=== PATIENT | male | born 1965 | race Caucasian/White ===

== ENCOUNTER 2019-05-23 18:38 | Emergency (ER) | payer BC, SELFPAY ==
[2019-05-23 18:41] VITALS: BP 183/118; PULSE 105; RESP 17; TEMP 36.5; O2SAT 98; BMI 26.8
--- NOTE | 2019-05-23 18:51 | ED_ITS ---
Entered by Adri Alonzo, acting as scribe for Diaz Zavala HPI - General Adult General: Chief complaint: General Medical Stated complaint: hand numbness Time Seen by Provider: 05/23/19 18:50 Source: patient Mode of arrival: ambulatory Limitations: no limitations History of Present Illness: HPI narrative: 53 yo Male presents to ED with complaint of hand numbness/tingling. Pt states that he went to the clinic to try to get his blood pressure prescription refilled but they wouldn't write it for him and told him to come in to the ED to be seen. Pt states that he had a 3 month prescription but his regular doctor's office closed and he hasn't gotten his prescription re-written. Pt states he has been out of his medication for 3 months. MD complaint: Needs blood pressure prescription Onset (ago): month(s) Location: left and upper extremity Radiation: non-radiation Severity scale (1-10): 8 Quality: constant Pain Consistency: constant Relieving factors: none Exacerbating factors: none Associated symptoms: Reports other (tingling in left hand); Deny chest pain, dyspnea, headache(s), nausea, rash, short of breath or vomiting Treatments prior to arrival: none Review of Systems General: Reports: 10 or more systems reviewed and unremarkable except in HPI and below Const: Denies: fever, chills or body aches Eyes: Denies: change in vision, blurry vision or blind spots ENMT: Denies: throat pain, painful swallowing, hoarseness or mouth pain Card: Reports: swelling of feet/ankles; Denies: chest pain Resp: Denies: shortness of breath, productive cough or non-productive cough GI: Denies: abdominal pain, nausea or vomiting : Denies: flank pain, difficulty urinating or painful urination Musc: Reports: extremity pain (left hand numbness and tingling) Skin/Breast: Denies: rash, itching or redness Neuro: Reports: numbness in extremities (left hand numbness and tingling); Denies: headache, weakness in extremities or changes in sensation Endo: Denies: excessive urination, excessive thirst or tired all the time PFS ED PFSH: Statuses (acute, chronic, etc) shown below reflect problem list status as previously entered and may not be historically accurate Medical History (Updated 05/23/19 @ 19:56 by Diaz Zavala) HTN (hypertension) (Acute) Social History Smoking and tobacco status: former smoker Physical Exam Const: COMMON NORMALS: no apparent distress, average body habitus, oriented x3, no limitations, healthy appearing, alert and well nourished HENMT: COMMON NORMALS: normocephalic, head/scalp atraumatic, hearing grossly normal bilaterally, external ears normal, EAC's normal, TM's normal bilaterally, external nose normal, nasal mucous membranes and turbinates normal, moist oral mucous membranes, oropharynx normal, dentition normal and gingiva normal HEAD & SCALP: normocephalic and atraumatic NOSE: external nose normal and nasal mucous membranes and turbinates normal EXTERNAL EAR: Yes external ears normal EXTERNAL AUDITORY CANAL: EAC's normal TYMPANIC MEMBRANE: TM's normal bilaterally Eye: COMMON NORMALS: PERRL, EOMs intact bilaterally, conjunctivae normal, no scleral icterus, no papilledema, normal visual valle by confrontation and fundi normal bilaterally CONJUNCTIVA: Yes conjunctivae normal PUPIL: Yes PERRL DIRECT OPHTHALMOSCOPY: Yes no papilledema and Yes fundi normal bilaterally Neck/C-Spine: COMMON NORMALS: full ROM, no lymphadenopathy, supple, no meningeal signs, no JVD, thyroid normal and no carotid bruits THYROID: thyroid normal Chest: COMMONS NORMALS: inspection of chest normal and palpation of chest normal Resp: COMMON NORMALS: normal respiratory effort, no retractions, no use of accessory muscles, clear to auscultation bilaterally and percussion normal AUSCULTATION: clear to auscultation bilaterally PERCUSSION: percussion normal Cardio: COMMON NORMALS: no JVD, regular rate, regular rhythm, S1 normal heart sound, S2 normal heart sound, no gallops, no clicks, no murmurs, no rub and peripheral pulses 2+ throughout RATE: regular rate RHYTHM: regular rhythm HEART SOUNDS: S1 normal and S2 normal PERIPHERAL PULSES: pulses 2+ throughout GI: COMMON NORMALS: normal to inspection, nondistended, normoactive bowel sounds, soft to palpation, non-tender, no hepatosplenomegaly, no masses and no bruits PALPATION: Yes soft and Yes no hepatosplenomegaly : COMMON NORMALS: Yes no CVA tenderness BLADDER/KIDNEY EXAM: Yes no CVA tenderness Back/Pelvis: COMMON NORMALS: no CVA tenderness, thoracic and lumbar spine normal to inspection, no thoracic nor lumbar tenderness, thoraco-lumbar ROM normal and straight leg raise negative bilaterally Extremity: COMMON NORMALS: full ROM, normal capillary refill, no joint enlargement, no clubbing, cyanosis or edema, no calf tenderness and no pedal edema; negative for normal to inspection GENERAL: Yes normal exam except as noted RIGHT UPPER EXTREMITY: Yes hand & digits LEFT UPPER EXTREMITY: Yes wrist Left wrist: Yes special tests Left wrist special tests: Tinel's test: Positive (over median nerve) Neuro: COMMON NORMALS: oriented x3 SENSORIUM/ORIENTATION: Yes alert MENINGEAL SIGNS: Yes no meningeal signs Skin: COMMON NORMALS: no rashes or lesions noted, no wounds, skin turgor normal, no jaundice, no petechiae and no mottling GENERAL SKIN EXAM: no rashes or lesions noted and turgor normal Course Vital Signs: Vital signs: Vital Signs Temperature 97.7 F 05/23/19 18:41 Pulse Rate 102 H 05/23/19 20:07 Respiratory Rate 18 05/23/19 20:07 Blood Pressure 149/105 05/23/19 20:07 Pulse Oximetry 97 05/23/19 20:07 Discharge Plan Discharge Patient Disposition: Home, Self-Care Clinical Impression: Hypertension, uncontrolled, History of medication noncompliance Carpal tunnel syndrome Qualifiers: Laterality: bilateral Qualified Code(s): G56.03 - Carpal tunnel syndrome, bilateral upper limbs Condition: Stable Prescriptions: New Lasix 40 mg tablet 40 mg PO DAILY Qty: 14 RF: 0 potassium chloride 20 mEq tablet extended release 20 meq PO DAILY Qty: 14 RF: 0 lisinopril 40 mg tablet 40 mg PO QAM Qty: 14 RF: 0 metoprolol succinate 25 mg tablet extended release 24 hr 25 mg PO .hs Qty: 14 RF: 0 No Action potassium chloride 10 mEq Tablet Extended Release 10 meq PO DAILY RF: 0 Lasix 20 mg Tablet 10 mg PO QAM RF: 0 lisinopril 40 mg Tablet 40 mg PO DAILY RF: 0 metoprolol tartrate 25 mg Tablet 25 mg PO DAILY RF: 0 Discharge Orders: Discharge Order (Routine); Ordered 05/23/19 Ordered By: Diaz Zavala Referrals: Srini Vegas MD [Primary Care Provider] - Discharge Diet: Low Salt Discharge Activity: Resume usual activity Patient Instructions: Hypertension, Carpal Tunnel Syndrome Exercises (GEN), Ca rpal Tunnel Syndrome (ED), Low Sodium Diet (ED) Activity Restrictions/Additional Instructions: Follow-up with an orthopedist as directed by your primary care provider Case management will assist in finding you a primary care provider. Discharge Date/Time: 05/23/19 20:09 Coding Level of Care Code ED Conventional Underwriter for Chg Fwd Exam Problem Focused The documentation recorded by the Clinton major Carmen, accurately reflects the service I personally performed and the decisions made by me, Diaz Zavala May 23, 2019 18:38
[2019-05-23 20:07] VITALS: BP 149/105; PULSE 102; RESP 18; O2SAT 97
--- NOTE | 2019-05-27 15:49 | DCPLANNER ---
commercial portfolio manager had message to speak with patient about getting established with a primary care physician. commercial portfolio manager spoke with patient, he stated that he would like help in getting established with a primary care physician. commercial portfolio manager called [facility] [place], spoke with Kristin, a follow up appointment was scheduled for Monday, May 29, 2019 at 11:30 with [employer], Farida Flores. commercial portfolio manager called patient to inform him of the appointment, unable to speak with patient, left a voicemail for patient to return leather case finisher phone call. commercial portfolio manager will try back again tomorrow 05.28.21.
--- NOTE | 2019-05-31 15:40 | DCPLANNER ---
Patient did attend appointment scheduled for 05.29.19 at [facility] [place] with Farida Flores.
== END 2019-05-23 20:09 | disposition home or self-care (01) ==
PROVIDERS: Emergency Provider Emergency Medicine; PCP Family Medicine
DX: G56.03 Carpal tunnel syndrome, bilateral upper limbs (principal); I10 Essential (primary) hypertension; Z87.891 Personal history of nicotine dependence
CPT/HCPCS: 99281

== ENCOUNTER → 2019-05-29 13:24 | Outpatient (BNVA) | payer BC, SELFPAY | PROVIDERS: PCP Family Medicine; Referring Provider Nurse Practitioner; Visit Provider Nurse Practitioner | DX: Z09 Encounter for follow-up examination after completed treatment for conditions other than malignant neoplasm (principal); I10 Essential (primary) hypertension; Z76.89 Persons encountering health services in other specified circumstances | CPT/HCPCS: 80053; 80061; 85025 ==

== ENCOUNTER → 2020-06-29 11:01 | Outpatient (BNVA) | payer BC, SELFPAY | PROVIDERS: PCP Family Medicine; Visit Provider Emergency Medicine | DX: N50.89 Other specified disorders of the male genital organs (principal); N50.812 Left testicular pain; N50.811 Right testicular pain | CPT/HCPCS: 80048; 81000; 85025; 87086; G0103 ==

== ENCOUNTER 2020-07-01 10:52 | Outpatient (CLI) | payer SELFPAY ==
--- NOTE | 2020-07-01 11:00 | US_ITS ---
WS: [id number] SCROTAL ULTRASOUND EXAMINATION CLINICAL INFORMATION: right testicle mass, swelling, pain COMPARISON: None. FINDINGS: TESTES Normal in size and echotexture, without focal lesion. Color Doppler: Normal color Doppler flow pattern. Right testes size: 4.1 cm x 3.0 cm x 2.3 cm. Left testes size: 4.6 cm x 2.7 cm x 2.7 cm. EPIDIDYMIDES Large spermatocele right epididymis measuring 2.7 x 2.8 x 1.6 cm Small left spermatocele measuring 5.6 mm. Right epididymis size: 1.4 cm x cm x cm. Left epididymitis size: 1.3 cm x cm x cm. HYDROCELE None. VARICOCELE None. OTHER FINDINGS None. US/US scrotum [id number] IMPRESSION: 1. Large spermatocele right epididymis measuring 2.7 x 2.8 x 1.6 cm 2. Small left epididymal cyst measuring 5.6 mm. 3. Testicles are normal in size and echogenicity.
== END 2020-07-01 10:53 | disposition home or self-care (01) ==
PROVIDERS: PCP Family Medicine; Visit Provider Emergency Medicine
DX: N50.89 Other specified disorders of the male genital organs (principal); N43.40 Spermatocele of epididymis, unspecified; N50.3 Cyst of epididymis
CPT/HCPCS: 76870

== ENCOUNTER → 2020-08-17 09:50 | Outpatient (BNVA) | payer BC, SELFPAY | PROVIDERS: PCP Family Medicine; Referring Provider Emergency Medicine; Visit Provider Urology | DX: N39.9 Disorder of urinary system, unspecified (principal); N43.40 Spermatocele of epididymis, unspecified; N50.82 Scrotal pain; I10 Essential (primary) hypertension | CPT/HCPCS: 81003 ==